=== PATIENT | male | born 1955 ===

== ENCOUNTER 2017-05-03 20:40 | Inpatient (IN) | payer MEDICARE, MEDICAID ==
[2017-05-03] MEDS ORDERED: Iohexol 240 (50 ml) PO STA (21:07)
[2017-05-03] MEDS ORDERED: Sodium Chloride 0.9% 1,000 ML IV ONE (21:07)
[2017-05-03 21:19] LABS: BASO % 0.2 % (0.0-2.0); EOS % 0.1 % (0.0-4.0); LYMPH % 10.2 % (20.0-40.0); MEAN CELL VOLUME 87.8 fL (80.0-94.0); MEAN CORPUSCULAR HEMOGLOBIN 29.9 pg (27.0-31.0); MEAN CORPUSCULAR HGB CONC 34.1 g/dL (33.0-37.0); MEAN PLATELET VOLUME 7.8 fL (7.2-11.7); MONO # 0.9 K/uL (0.0-0.8); MONO % 4.9 % (0.0-10.0); RED CELL DISTRIBUTION WIDTH 12.9 % (11.5-14.5); WHITE BLOOD COUNT 19.3 K/uL (4.8-10.8)
[2017-05-03] MEDS ORDERED: Iohexol 240 (50 ml) ONE (21:19)
[2017-05-03] MEDS ORDERED: Sodium Chloride 0.9% 1,000 ML ONE (21:20)
[2017-05-03] MEDS ORDERED: Piperacillin/Tazobact 3.375 gm 100 ML IV STA (21:24)
[2017-05-03 21:27] LABS: CHLORIDE 99 mmol/L (98-107)
[2017-05-03 21:28] LABS: POTASSIUM 4.1 mmol/L (3.6-5.2); SODIUM 138 mmol/L (132-148)
[2017-05-03] MEDS ORDERED: Piperacillin/Tazobact 3.375 gm 100 ML IVPB ONE (21:29)
[2017-05-03 21:30] LABS: ALB/GLOB RATIO 1.2 (1.0-2.1); ALKALINE PHOSPHATASE 77 U/L (38-126); ALT/SGPT 43 U/L (21-72); AST/SGOT 27 U/L (17-59); BILIRUBIN,TOTAL 0.8 mg/dL (0.2-1.3); BLOOD UREA NITROGEN 11 mg/dL (9-20); CARBON DIOXIDE 22 mmol/L (22-30); GFR AFRICAN-AMERICAN > 60; TOTAL PROTEIN 7.9 g/dL (6.3-8.3)
[2017-05-03 21:31] LABS: GLUCOSE,RANDOM 111 mg/dL (75-110)
--- NOTE | 2017-05-03 21:41 | C.PDOC ---
History Of Present Illness 61 year old male presents to the ED with complaints of generalized abdominal pain that radiates to RLQ beginning earlier today. Patient states he awoke this morning with no symptoms and following breakfast he began to have generalized abdominal pain and vomiting. He notes pain lingered all day and began to radiate to RLQ and become localized. Pain is exacerbated with walking, movement , and deep breaths. Patient notes vomiting has subsided and he denies fever or diarrhea. Time Seen by Provider: 05/03/17 21:00 Chief Complaint (Nursing): Abdominal Pain History Per: Patient History/Exam Limitations: no limitations Onset/Duration Of Symptoms: Hrs Current Symptoms Are (Timing): Still Present Location Of Pain/Discomfort: Diffuse (began as diffuse abdominal pain), RLQ ( radiated and became localized to RLQ) Quality Of Discomfort: "Pain" Associated Symptoms: Vomiting. denies: Fever, Chills, Diarrhea Exacerbating Factors: Movement, Walking, Deep Breaths Recent travel outside of the [place]: No Past Medical History Reviewed: Historical Data, Nursing Documentation, Vital Signs Vital Signs: Last Vital Signs Temp 98.3 F 05/03/17 20:47 Pulse 71 05/03/17 20:47 Resp 18 05/03/17 20:47 BP 187/89 H 05/03/17 20:47 Pulse Ox 100 05/03/17 23:32 Family History: States: Unknown Family Hx - Social History Hx Alcohol Use: No Hx Substance Use: No Review Of Systems Constitutional: Negative for: Fever, Chills Cardiovascular: Negative for: Chest Pain, Palpitations Respiratory: Negative for: Cough, Shortness of Breath Gastrointestinal: Positive for: Nausea, Vomiting, Abdominal Pain. Negative for : Diarrhea Genitourinary: Negative for: Dysuria Physical Exam - Physical Exam Appears: Non-toxic, No Acute Distress Skin: Warm, Dry Head: Atraumatic Eye(s): bilateral: Normal Inspection, EOMI Oral Mucosa: Moist Neck: Supple Chest: Symmetrical, No Deformity Cardiovascular: Rhythm Regular, No Murmur Respiratory: Normal Breath Sounds, No Rhonchi, No Wheezing Gastrointestinal/Abdominal: Bowel Sounds (normal bowel sounds ), Soft, Tenderness (RLQ), No Distention, Guarding (RLQ), No Rebound Neurological/Psych: Oriented x3, Normal Speech, Normal Cognition ED Course And Treatment - Laboratory Results Result Diagrams: 05/03/17 21:16 05/03/17 21:16 Lab Interpretation: Abnormal (WBC 19.3 with left shift) O2 Sat by Pulse Oximetry: 100 (room air ) - CT Scan/US CT Abdomen and Pelvis With Intravenous Contrast Other Rad Studies (CT/US): Read By Radiologist, Radiology Report Reviewed CT/US Interpretation: FINDINGS: Lower thorax: Heart size is normal. There are coronary calcifications. There is reflux of contrast into. the distal esophagus. There is minimal atelectasis at the lung bases. ABDOMEN: Liver: There small granulomas in the liver. There is fatty infiltration of the liver. Gallbladder and bile ducts: unremarkable. Pancreas: unremarkable. Spleen: unremarkable. Adrenals: unremarkable. Kidneys and ureters: unremarkable. Stomach and bowel: Stomach is partially distended. Rotation is normal. There is no obstruction. There is mild distal ileal wall thickening. Retrocecal appendix is fluid-filled and dilated. Maximal. diameter is approximately 15 mm. There are multiple fecaliths in the appendix. There is adjacent. inflammation and edema. There is a small amount of fluid in the colic gutter. Colon is incompletely. distended which limits evaluation. Appendix: See stomach and bowel. PELVIS: Bladder: unremarkable. Reproductive: Seminal vesicles and prostate are unremarkable. ABDOMEN and PELVIS: Intraperitoneal space: There is no free air or free fluid. There is inflammation and edema in the right. lower quadrant. There is a small amount of free fluid in the right colic. There is no free air. Bones/joints: There is scoliosis. There are bridging syndesmophytes and osteophytes throughout. the spine. There degenerative changes. There is partial sacroiliac joint ankylosis. Soft tissues : unremarkable. Vasculature: There are vascular calcifications. Lymph nodes: There is no pathologic adenopathy. IMPRESSION: Appendicitis. Additional findings as described above Progress Note: Abdominal pelvis CT and UA were ordered. Patient was given Iohexol, piperacillin/tazobactam IVPB, and IV fluids. Disposition - Disposition Disposition: HOSPITALIZED Disposition Time: 23:32 Condition: STABLE - Clinical Impression Clinical Impression: Appendicitis - Scribe Statement The provider has reviewed the documentation as recorded by the Scribe Cherie Alvarez All medical record entries made by the Aceibe were at my direction and personally dictated by me. I have reviewed the chart and agree that the record accurately reflects my personal performance of the history, physical exam, medical decision making, and the department course for this patient. I have also personally directed, reviewed, and agree with the discharge instructions and disposition.
[2017-05-03] MEDS ORDERED: Iodixanol 320 MG/ML 100 ML BOTTLE IV ONE (22:15)
[2017-05-03 22:35] LABS: RBC URINE 1 /hpf (0-3); URINE BILIRUBIN NEGATIVE (NEGATIVE); URINE BLOOD NEGATIVE (NEGATIVE); URINE COLOR Yellow (YELLOW); URINE GLUCOSE (UA) NORMAL (Normal); URINE KETONE 1+ mg/dL (NEGATIVE); URINE LEUKOCYTE ESTERASE NEG Leu/uL (Negative); URINE PROTEIN NEGATIVE (NEGATIVE); URINE UROBILINOGEN NORMAL mg/dL (0.2-1.0); WBC URINE < 1 /hpf (0-5)
--- NOTE | 2017-05-03 23:25 | CT ---
EXAM: CT Abdomen and Pelvis With Intravenous Contrast EXAM DATE/TIME: 05/03/2017 9:08 PM CLINICAL HISTORY: 61 years old, male; Pain; Abdominal pain; Generalized; Prior surgery; Surgery date: 6+ months; Surgery type: Bi lateral hernia repair; Additional info: Abd pain TECHNIQUE: Axial computed tomography images of the abdomen and pelvis with intravenous contrast. All CT scans at this facility use one or more dose reduction techniques, viz.: automated exposure control; ma/kV adjustment per patient size (including targeted exams where dose is matched to indication; i.e. head); or iterative reconstruction technique. Coronal and sagittal reformatted images were created and reviewed. CONTRAST: 90 mL of VISIPAQUE administered intravenously. COMPARISON: There are no prior studies for comparison. FINDINGS: Lower thorax: Heart size is normal. There are coronary calcifications. There is reflux of contrast into the distal esophagus. There is minimal atelectasis at the lung bases ABDOMEN: Liver: There small granulomas in the liver. There is fatty infiltration of the liver. Gallbladder and bile ducts: unremarkable Pancreas: unremarkable Spleen: unremarkable Adrenals: unremarkable Kidneys and ureters: unremarkable Stomach and bowel: Stomach is partially distended. Rotation is normal. There is no obstruction. There is mild distal ileal wall thickening. Retrocecal appendix is fluid-filled and dilated. Maximal diameter is approximately 15 mm. There are multiple fecaliths in the appendix. There is adjacent inflammation and edema. There is a small amount of fluid in the colic gutter. Colon is incompletely distended which limits evaluation. Appendix: See stomach and bowel PELVIS: Bladder: unremarkable Reproductive: Seminal vesicles and prostate are unremarkable. ABDOMEN and PELVIS: Intraperitoneal space: There is no free air or free fluid. There is inflammation and edema in the right lower quadrant. There is a small amount of free fluid in the right colic. There is no free air. Bones/joints: There is scoliosis. There are bridging syndesmophytes and osteophytes throughout the spine. There degenerative changes. There is partial sacroiliac joint ankylosis. Soft tissues: unremarkable Vasculature: There are vascular calcifications. Lymph nodes: There is no pathologic adenopathy. IMPRESSION: Appendicitis Additional findings as described above.
--- NOTE | 2017-05-04 01:23 | CP.PCM.HP ---
History of Present Illness - History of Present Illness History of Present Illness: Surgery: Dr. Barber CC: Abd pain HPI: 61M w. no PMH presents to ED w. abd pain starting at 10AM. Pain was christine- umbilical and migrated to RLQ. Pain is sharp and constant. No alleviating or aggravating factors. + N/V. No Diarrhea. +F/C. No change in appetite. Pt denies ACUNA/blurred vision, no CP/palpitations, +SOB when pain is most severe, no cough, no hematuria/dysuria, no weakness/fatigue. CT done in ED had findings consistent w. appendicitis. PMH: none PSH: Open and laparoscopic B/L inguinal hernia repair Meds: none NKDA SOcial: No ETOH/tobacco/drugs Fhx: non-contributory Present on Admission - Present on Admission Any Indicators Present on Admission: No Review of Systems - Review of Systems All systems: reviewed and no additional remarkable complaints except (HPI) Past Patient History - Past Social History Smoking Status: Former Smoker - PSYCHIATRIC Hx Substance Use: No - SURGICAL HISTORY Hx Herniorrhaphy: Yes Meds Allergies/Adverse Reactions: Allergies Allergy/AdvReac Type Severity Reaction Status Date / Time No Known Allergies Allergy Verified 05/03/17 21:07 Physical Exam - Constitutional Appears: Non-toxic, No Acute Distress - Head Exam Head Exam: ATRAUMATIC, NORMOCEPHALIC - Eye Exam Eye Exam: EOMI. absent: Scleral icterus Pupil Exam: PERRL - ENT Exam ENT Exam: Mucous Membranes Moist, Normal External Ear Exam - Neck Exam Neck exam: Positive for: Full Rom - Respiratory Exam Respiratory Exam: NORMAL BREATHING PATTERN. absent: Accessory Muscle Use, Respiratory Distress - Cardiovascular Exam Cardiovascular Exam: REGULAR RHYTHM - GI/Abdominal Exam GI & Abdominal Exam: Soft, Tenderness (RLQ). absent: Distended, Firm, Guarding , Rebound, Rigid - Extremities Exam Extremities exam: Negative for: calf tenderness, pedal edema - Back Exam Back exam: absent: CVA tenderness (L), CVA tenderness (R) - Neurological Exam Neurological exam: Alert, Oriented x3 - Psychiatric Exam Psychiatric exam: Normal Affect, Normal Mood - Skin Skin Exam: Dry, Normal Color, Warm Results - Vital Signs Recent Vital Signs: Last Vital Signs Temp 99.2 F 05/04/17 01:07 Pulse 89 05/04/17 01:07 Resp 20 05/04/17 01:07 BP 178/91 H 05/04/17 01:07 Pulse Ox 95 05/04/17 01:07 - Labs Result Diagrams: 05/03/17 21:16 05/03/17 21:16 - Imaging and Cardiology CT scan - abdomen Status: Image reviewed by me, Report reviewed by me Assessment & Plan - Assessment and Plan (Free Text) Assessment: 61M w. appendicitis -OR 8AM, consent in chart, risks/benefits d/w pt -NPO -zosyn -zofran -dilaudid -IVF -SCDs -d/w attending Zemaitis PGY3 Decision To Admit - Pt Status Changed To: Hospital Disposition Of: Inpatient - Admit Certification Admit to Inpatient:: After my assessment, the patient will require hospitalization for at least two midnights. This is because of the severity of symptoms shown, intensity of services needed, and/or the medical risk in this patient being treated as an outpatient. - InPatient: Physician Admission Certification:: appendicitis - . Bed Request Type: Regular
[2017-05-04] MEDS: Piperacillin/Tazobact 3.375 GM in Sodium Chloride 100 ML IVPB SCH ×4 (02:15→18:57)
[2017-05-04] MEDS: Sodium Chloride 0.9% 1,000 ML IV SCH ×4 (02:16→22:02)
[2017-05-04] MEDS ORDERED: Bupivacaine-Epi 0.25%-1:200,000 PF Inj ONE (07:25)
[2017-05-04] MEDS ORDERED: HYDROmorphone 0.5 mg/0.5 ml ISec IVP PRN (07:54)
[2017-05-04] MEDS ORDERED: Propofol 10 mg/ml Inj (20 ML) ONE (07:57)
[2017-05-04] MEDS ORDERED: Midazolam 2 MG/2 ML VIAL ONE (07:57)
[2017-05-04] MEDS ORDERED: Succinylcholine Chloride 20 mg/ml Syr (5 ml) IV ONE (08:00)
[2017-05-04] MEDS ORDERED: Rocuronium 10 mg/ml (5 ml) ONE (08:00)
[2017-05-04] MEDS ORDERED: Lactated Ringer's 1,000 ML IV SCH (08:15)
[2017-05-04] MEDS ORDERED: Neostigmine Methylsulfate 3mg/3ml Syringe IV ONE (09:29)
[2017-05-04] MEDS ORDERED: Lactated Ringer's 1,000 ML IV ONE (09:50)
--- NOTE | 2017-05-04 09:53 | PCM.SURG1 ---
Surgeon's Initial Post Op Note - Surgeon's Notes Surgeon: Sunil Instructor Warper: SHAHID CrooksY2, Fred, MS4 Pre-Operative Diagnosis: Appendicitis Operative Findings: inflamed appendix, perforated Post-Operative Diagnosis: perforated appendicitis Operation Performed: laparoscopic turned open appendectomy Specimen/Specimens Removed: appendix Estimated Blood Loss: EBL {In ML}: 40 Date of Surgery/Procedure: 05/04/17 Time of Surgery/Procedure: 08:40
[2017-05-04] MEDS: HYDROmorphone 1 mg/ml ISec IVP PRN ×2 (14:19→21:58)
[2017-05-05] MEDS: Piperacillin/Tazobact 3.375 GM in Sodium Chloride 100 ML IVPB SCH ×4 (00:33→18:52)
[2017-05-05] MEDS: HYDROmorphone 1 mg/ml ISec IVP PRN ×3 (01:46→11:22)
[2017-05-05 06:23] LABS: BASO % 0.2 % (0.0-2.0); HEMATOCRIT 41.5 % (35.0-51.0); LYMPH # 1.6 K/uL (1.0-4.3); LYMPH % 12.7 % (20.0-40.0); MEAN CORPUSCULAR HEMOGLOBIN 29.3 pg (27.0-31.0); MEAN CORPUSCULAR HGB CONC 32.9 g/dL (33.0-37.0); MEAN PLATELET VOLUME 8.3 fL (7.2-11.7); MONO # 0.9 K/uL (0.0-0.8); MONO % 7.3 % (0.0-10.0); RED CELL DISTRIBUTION WIDTH 13.2 % (11.5-14.5); WHITE BLOOD COUNT 12.6 K/uL (4.8-10.8)
[2017-05-05 06:45] LABS: ALB/GLOB RATIO 1.1 (1.0-2.1); ALKALINE PHOSPHATASE 51 U/L (38-126); ALT/SGPT 33 U/L (21-72); AST/SGOT 30 U/L (17-59); BILIRUBIN,TOTAL 1.5 mg/dL (0.2-1.3); BLOOD UREA NITROGEN 14 mg/dL (9-20); CALCIUM 8.4 mg/dl (8.6-10.4); CARBON DIOXIDE 24 mmol/L (22-30); CHLORIDE 102 mmol/L (98-107); GFR AFRICAN-AMERICAN > 60; GLUCOSE,RANDOM 126 mg/dL (75-110); POTASSIUM 4.2 mmol/L (3.6-5.2); SODIUM 137 mmol/L (132-148); TOTAL PROTEIN 6.4 g/dL (6.3-8.3)
[2017-05-05] MEDS ORDERED: Benzocaine/Menthol (Cepacol) Lozenge MT ONE (06:45)
[2017-05-05] MEDS: Sodium Chloride 0.9% 1,000 ML IV SCH ×3 (06:52→18:51)
--- NOTE | 2017-05-05 06:53 | OP ---
PROCEDURE DATE: 05/04/2017 PREOPERATIVE DIAGNOSIS: Acute appendicitis with possible perforation. POSTOPERATIVE DIAGNOSIS: Acute appendicitis with possible perforation. PROCEDURE PERFORMED: Laparoscopy, attempted laparoscopic appendectomy, then exploratory laparotomy and open appendectomy. FINDINGS: The appendix was markedly inflamed. There is purulent fluid located in the right lower quadrant of the abdomen and in the pelvis. The appendix was markedly swollen, especially the mesoappendix, but the base was not identifiable. PROCEDURE: Under general anesthesia, the patient was prepared and draped in the usual sterile fashion. CO2 was insufflated through a Veress needle and inserted in the umbilical area. A 12 mm trocar was inserted in the umbilicus, 5 mm in the suprapubic area and a 5 mm trocar in the left lower quadrant. The patient was placed in a Trendelenburg position, turned over towards the left side. Visibility was difficult because of tremendously distended bowel. However, the appendix was identified but very, very friable; therefore, the attempted grasping of the appendix made it like come out in small pieces without identifying the rest of the appendix. Because of this condition and because of the poor visibility, we could not identify the base of the appendix. Therefore, a decision was made to do an open appendectomy. A right lower paramedian incision was made, extended down to subcutaneous tissue to the fascial level. The muscle was along the course of its fibers and peritoneal cavity was entered. The above findings were demonstrated. The cecum was then identified. A blunt dissection was carried out to mobilize the cecum and the appendix and then the base of the appendix was identified by transecting through the mesentery first. The patient was then ligated with a single tie of 0 Vicryl. The appendix was then removed. Check for bleeders proved to be negative for any bleeding; therefore, the area was irrigated with copious amount of saline solution, irrigating fluid was suctioned out. Abdomen was then closed in layers utilizing a continuous suture of 0 Vicryl for the peritoneum, interrupted [id number] sutures of 0 Vicryl for the fascia and the skin was closed with multiple skin marly. A similar procedure was employed on the smaller trocar site incisions. Estimated blood loss for the procedure probably approximately about 50 mL. The patient tolerated the procedure well and left the operating room in good condition. Cedric Barber MD [facility] # [id number]
--- NOTE | 2017-05-05 15:32 | CP.PCM.PN ---
Subjective - Date & Time of Evaluation Date of Evaluation: 05/05/17 Time of Evaluation: 06:35 - Subjective Subjective: Patient seen and examined. Complaints of pain along surgical incision sites. Dressings are c/d/i. Tolerating diet. Objective - Vital Signs/Intake and Output Vital Signs (last 24 hours): Temp Pulse Resp BP Pulse Ox 99.4 F 101 H 18 131/73 97 05/05/17 07:20 05/05/17 07:20 05/05/17 07:20 05/05/17 07:20 05/05/17 07:20 Intake and Output: 05/05/17 05/05/17 06:59 18:59 Intake Total 1020 Output Total 1000 Balance 20 - Medications Medications: Current Medications Acetaminophen (Tylenol 325mg Tab) 650 mg PO Q6 PRN PRN Reason: Fever >100.4 F Hydromorphone HCl (Dilaudid) 1 mg IVP Q4H PRN PRN Reason: Pain, moderate (4-7) Last Admin: 05/05/17 11:22 Dose: 1 mg Piperacillin Sod/Tazobactam (Sod 3.375 gm/ Sodium Chloride) 100 mls @ 200 mls/ hr IVPB Q6H [facility] Last Admin: 05/05/17 14:05 Dose: 200 mls/hr Sodium Chloride (Sodium Chloride 0.9%) 1,000 mls @ 120 mls/hr IV .Q8H20M [facility] Last Admin: 05/05/17 11:26 Dose: 120 mls/hr Lactated Ringer's (Lactated Ringer's) 1,000 mls @ 100 mls/hr IV .Q10H [facility] Last Admin: 05/05/17 06:07 Dose: Not Given Ondansetron HCl (Zofran Inj) 4 mg IVP Q4 PRN PRN Reason: Nausea/Vomiting - Labs Labs: 05/05/17 06:20 05/05/17 06:20 PT 11.7 SECONDS (9.7-12.2) 05/04/17 01:44 INR 1.0 05/04/17 01:44 APTT 31 SECONDS (21-34) 05/04/17 01:44 - Constitutional Appears: No Acute Distress - Head Exam Head Exam: NORMOCEPHALIC - Eye Exam Eye Exam: Normal appearance Pupil Exam: NORMAL ACCOMODATION - ENT Exam ENT Exam: Mucous Membranes Moist - Respiratory Exam Respiratory Exam: NORMAL BREATHING PATTERN - Cardiovascular Exam Cardiovascular Exam: +S1, +S2 - GI/Abdominal Exam GI & Abdominal Exam: Distended, Soft Additional comments: mild distended - Neurological Exam Neurological Exam: Alert, Awake, Oriented x3 - Psychiatric Exam Psychiatric exam: Normal Mood - Skin Skin Exam: Dry, Warm Assessment and Plan - Assessment and Plan (Free Text) Assessment: 61M s/p laparoscopic appendectomy converted to open appendectomy POD1 -Adv to regular diet -C/w Abx -Analgesic/Anti-emetics prn -Encourage incentive spirometer -Encourage ambulation -Further recs per Dr. Sunil Park PGY-2
[2017-05-06] MEDS: Piperacillin/Tazobact 3.375 GM in Sodium Chloride 100 ML IVPB SCH ×3 (01:54→18:33)
[2017-05-06] MEDS: Sodium Chloride 0.9% 1,000 ML IV SCH ×2 (02:58→20:10)
[2017-05-06] MEDS: HYDROmorphone 1 mg/ml ISec IVP PRN ×3 (07:55→22:52)
--- NOTE | 2017-05-06 08:47 | CP.PCM.PN ---
Subjective - Date & Time of Evaluation Date of Evaluation: 05/06/17 Time of Evaluation: 07:15 - Subjective Subjective: SURGERY NOTE FOR DR. DSOUZA 61M seen and examined at bedside. Patient states his abdomen is still distended , denies flatus/bowel movement. Admits eructation. Objective - Vital Signs/Intake and Output Vital Signs (last 24 hours): Temp Pulse Resp BP Pulse Ox 98.4 F 100 H 18 182/95 H 95 05/06/17 08:12 05/06/17 08:12 05/06/17 08:12 05/06/17 08:12 05/06/17 08:12 Intake and Output: 05/06/17 05/06/17 06:59 18:59 Intake Total 1060 Output Total 300 Balance 760 - Medications Medications: Current Medications Acetaminophen (Tylenol 325mg Tab) 650 mg PO Q6 PRN PRN Reason: Fever >100.4 F Hydromorphone HCl (Dilaudid) 1 mg IVP Q4H PRN PRN Reason: Pain, moderate (4-7) Last Admin: 05/06/17 07:55 Dose: 1 mg Piperacillin Sod/Tazobactam (Sod 3.375 gm/ Sodium Chloride) 100 mls @ 200 mls/ hr IVPB Q6H [facility] Last Admin: 05/06/17 07:54 Dose: 200 mls/hr Sodium Chloride (Sodium Chloride 0.9%) 1,000 mls @ 120 mls/hr IV .Q8H20M [facility] Last Admin: 05/06/17 02:58 Dose: 120 mls/hr Lactated Ringer's (Lactated Ringer's) 1,000 mls @ 100 mls/hr IV .Q10H [facility] Last Admin: 05/05/17 06:07 Dose: Not Given Metoclopramide HCl (Reglan) 10 mg IVP Q6H [facility] Last Admin: 05/06/17 05:49 Dose: 10 mg - Labs Labs: 05/05/17 06:20 05/05/17 06:20 PT 11.7 SECONDS (9.7-12.2) 05/04/17 01:44 INR 1.0 05/04/17 01:44 APTT 31 SECONDS (21-34) 05/04/17 01:44 - Constitutional Appears: Non-toxic, No Acute Distress - Respiratory Exam Respiratory Exam: Clear to Ausculation Bilateral, NORMAL BREATHING PATTERN - Cardiovascular Exam Cardiovascular Exam: REGULAR RHYTHM, +S1, +S2 - GI/Abdominal Exam GI & Abdominal Exam: Distended, Soft, Tenderness. absent: Firm, Guarding, Rigid , Rebound - Neurological Exam Neurological Exam: Alert, Awake - Skin Skin Exam: Dry, Intact, Normal Color, Warm Assessment and Plan - Assessment and Plan (Free Text) Assessment: 61M s/p laparoscopic turned open appendectomy POD2 Plan: - Patient is NPO - Patient started on Reglan - await bowel function - encourage ambulation/Incentive spirometer Further recs discuss with Dr. Sunil Crooks, PGY2
[2017-05-07] MEDS: Piperacillin/Tazobact 3.375 GM in Sodium Chloride 100 ML IVPB SCH ×4 (00:46→18:37)
[2017-05-07] MEDS ORDERED: Sodium Chloride 0.9% 1,000 ML IV SCH ×2 (01:30→05:00)
[2017-05-07] MEDS: HYDROmorphone 1 mg/ml ISec IVP PRN (05:20)
[2017-05-07 08:03] LABS: HEMATOCRIT 34.5 % (35.0-51.0); MEAN CORPUSCULAR HEMOGLOBIN 29.9 pg (27.0-31.0); MEAN PLATELET VOLUME 8.5 fL (7.2-11.7); RED CELL DISTRIBUTION WIDTH 13.1 % (11.5-14.5); WHITE BLOOD COUNT 13.4 K/uL (4.8-10.8)
[2017-05-07 08:33] LABS: CHLORIDE 104 mmol/L (98-107)
[2017-05-07 08:34] LABS: POTASSIUM 3.4 mmol/L (3.6-5.2); SODIUM 141 mmol/L (132-148)
[2017-05-07 08:36] LABS: GFR AFRICAN-AMERICAN > 60
[2017-05-07 08:37] LABS: BLOOD UREA NITROGEN 15 mg/dL (9-20); CALCIUM 8.2 mg/dl (8.6-10.4); CARBON DIOXIDE 23 mmol/L (22-30); GLUCOSE,RANDOM 117 mg/dL (75-110)
--- NOTE | 2017-05-07 09:14 | CP.PCM.PN ---
Subjective - Date & Time of Evaluation Date of Evaluation: 05/07/17 Time of Evaluation: 07:00 - Subjective Subjective: SURGERY NOTE FOR DR. DSOUZA 61M seen and examined at bedside. Patient states pain is much more improved. He had multiple bowel movements overnight, Tolerating diet. Objective - Vital Signs/Intake and Output Vital Signs (last 24 hours): Temp Pulse Resp BP Pulse Ox 99.1 F 98 H 20 171/85 H 96 05/07/17 07:00 05/07/17 07:00 05/07/17 07:00 05/07/17 07:00 05/07/17 07:00 Intake and Output: 05/07/17 05/07/17 06:59 18:59 Intake Total 1710 Balance 1710 - Medications Medications: Current Medications Acetaminophen (Tylenol 325mg Tab) 650 mg PO Q6 PRN PRN Reason: Fever >100.4 F Piperacillin Sod/Tazobactam (Sod 3.375 gm/ Sodium Chloride) 100 mls @ 200 mls/ hr IVPB Q6H [facility] Last Admin: 05/07/17 06:36 Dose: 200 mls/hr Metoclopramide HCl (Reglan) 10 mg IVP Q6H [facility] Last Admin: 05/07/17 05:20 Dose: 10 mg Oxycodone/Acetaminophen (Percocet 5/325 Mg Tab) 1 tab PO Q4H PRN PRN Reason: Pain, moderate (4-7) Stop: 05/10/17 08:55 - Labs Labs: 05/07/17 07:50 05/07/17 07:50 PT 11.7 SECONDS (9.7-12.2) 05/04/17 01:44 INR 1.0 05/04/17 01:44 APTT 31 SECONDS (21-34) 05/04/17 01:44 - Constitutional Appears: Non-toxic, No Acute Distress - Respiratory Exam Respiratory Exam: Clear to Ausculation Bilateral, NORMAL BREATHING PATTERN - Cardiovascular Exam Cardiovascular Exam: REGULAR RHYTHM, +S1, +S2 - GI/Abdominal Exam GI & Abdominal Exam: Soft. absent: Distended, Firm, Guarding, Rigid, Tenderness , Rebound Additional comments: dressings CDI - Neurological Exam Neurological Exam: Alert, Awake Assessment and Plan - Assessment and Plan (Free Text) Assessment: 61M s/p lap appendectomy turned open POD3 Plan: - Pain control - IV Abx - ADAT - Monitor wounds Further recs discuss with Dr. Sunil Crooks, PGY2
[2017-05-07] MEDS: Oxycodone/Acetaminophen 5/325 mg Tab PO PRN ×2 (11:13→22:11)
[2017-05-08] MEDS: Piperacillin/Tazobact 3.375 GM in Sodium Chloride 100 ML IVPB SCH ×4 (00:35→20:30)
[2017-05-08] MEDS: Oxycodone/Acetaminophen 5/325 mg Tab PO PRN ×5 (02:19→22:09)
[2017-05-08 07:05] LABS: HEMATOCRIT 36.3 % (35.0-51.0); MEAN CELL VOLUME 88.5 fL (80.0-94.0); MEAN CORPUSCULAR HEMOGLOBIN 29.4 pg (27.0-31.0); MEAN CORPUSCULAR HGB CONC 33.2 g/dL (33.0-37.0); MEAN PLATELET VOLUME 8.2 fL (7.2-11.7); RED CELL DISTRIBUTION WIDTH 13.2 % (11.5-14.5); WHITE BLOOD COUNT 12.5 K/uL (4.8-10.8)
[2017-05-08 08:04] VITALS: RESP 20
--- NOTE | 2017-05-08 08:47 | CP.PCM.PN ---
Subjective - Date & Time of Evaluation Date of Evaluation: 05/08/17 Time of Evaluation: 08:43 - Subjective Subjective: General surgery - Dr. Barber Pt S&EElia MICHAUD. Pt complains of mild pain from the incision but controlled with meds. He is tolerating full liquid diet but states that he does not want to try solid food yet. He had a few loose stools yest. No F/C, SOb/Cp. Objective - Vital Signs/Intake and Output Vital Signs (last 24 hours): Temp Pulse Resp BP Pulse Ox 98.5 F 84 20 168/78 H 96 05/08/17 08:02 05/08/17 08:02 05/08/17 08:02 05/08/17 08:02 05/08/17 08:02 - Medications Medications: Current Medications Acetaminophen (Tylenol 325mg Tab) 650 mg PO Q6 PRN PRN Reason: Fever >100.4 F Piperacillin Sod/Tazobactam (Sod 3.375 gm/ Sodium Chloride) 100 mls @ 200 mls/ hr IVPB Q6H [facility] Last Admin: 05/08/17 06:30 Dose: 200 mls/hr Oxycodone/Acetaminophen (Percocet 5/325 Mg Tab) 1 tab PO Q4H PRN PRN Reason: Pain, moderate (4-7) Stop: 05/10/17 08:55 Last Admin: 05/08/17 06:16 Dose: 1 tab - Labs Labs: 05/08/17 07:01 05/07/17 07:50 PT 11.7 SECONDS (9.7-12.2) 05/04/17 01:44 INR 1.0 05/04/17 01:44 APTT 31 SECONDS (21-34) 05/04/17 01:44 - Constitutional Appears: No Acute Distress - Head Exam Head Exam: ATRAUMATIC, NORMAL INSPECTION, NORMOCEPHALIC - Respiratory Exam Respiratory Exam: NORMAL BREATHING PATTERN. absent: Respiratory Distress - GI/Abdominal Exam GI & Abdominal Exam: Distended (mild), Soft, Tenderness (appropriately). absent : Guarding, Rebound Additional comments: midline incision w/ marly and serous drainage, mild erythema and tenderness around wound, dressing changed - Neurological Exam Neurological Exam: Alert, Oriented x3 - Psychiatric Exam Psychiatric exam: Normal Affect, Normal Mood - Skin Skin Exam: Dry, Intact Assessment and Plan - Assessment and Plan (Free Text) Assessment: 61M s/p lap appendectomy conv. to Open POD4 Plan: - Cont. Pain control, IV Abx - Poss. small superficial wound infection v. seroma - Dressing change daily by surgical team and can be changed PRN by nursing through the day if it becomes saturated - ADAT -Encourage OOB and Ambulation Will dw Dr Sunil Hi, PGY3
[2017-05-08 09:40] LABS: CHLORIDE 105 mmol/L (98-107); SODIUM 141 mmol/L (132-148)
[2017-05-08 09:43] LABS: BLOOD UREA NITROGEN 13 mg/dL (9-20); CARBON DIOXIDE 27 mmol/L (22-30); GFR AFRICAN-AMERICAN > 60
[2017-05-08 09:44] LABS: CALCIUM 8.3 mg/dl (8.6-10.4); GLUCOSE,RANDOM 119 mg/dL (75-110)
[2017-05-08] MEDS ORDERED: Potassium Chloride 20 mEq ER Tab PO ONE (12:00)
[2017-05-09] MEDS: Piperacillin/Tazobact 3.375 GM in Sodium Chloride 100 ML IVPB SCH ×4 (00:34→20:50)
[2017-05-09] MEDS: Oxycodone/Acetaminophen 5/325 mg Tab PO PRN ×3 (03:17→17:31)
[2017-05-09 11:46] LABS: BASO # 0.1 K/uL (0.0-0.2); EOS # 0.2 K/uL (0.0-0.7); MEAN PLATELET VOLUME 8.2 fL (7.2-11.7); MONO # 1.3 K/uL (0.0-0.8)
[2017-05-09 11:51] LABS: BASO % 0.5 % (0.0-2.0); EOS % 1.6 % (0.0-4.0); HEMATOCRIT 36.4 % (35.0-51.0); LYMPH # 1.7 K/uL (1.0-4.3); LYMPH % 14.4 % (20.0-40.0); MEAN CORPUSCULAR HEMOGLOBIN 29.7 pg (27.0-31.0); MEAN CORPUSCULAR HGB CONC 33.8 g/dL (33.0-37.0); MONO % 11.2 % (0.0-10.0); RED CELL DISTRIBUTION WIDTH 13.5 % (11.5-14.5); WHITE BLOOD COUNT 12.1 K/uL (4.8-10.8)
[2017-05-09 11:52] LABS: CHLORIDE 101 mmol/L (98-107); POTASSIUM 3.3 mmol/L (3.6-5.2); SODIUM 140 mmol/L (132-148)
[2017-05-09 11:54] LABS: GFR AFRICAN-AMERICAN > 60
[2017-05-09 11:55] LABS: BLOOD UREA NITROGEN 13 mg/dL (9-20); CALCIUM 8.3 mg/dl (8.6-10.4); CARBON DIOXIDE 30 mmol/L (22-30); GLUCOSE,RANDOM 121 mg/dL (75-110)
[2017-05-09] MEDS ORDERED: Potassium Chloride 20 mEq ER Tab PO ONE (12:11)
--- NOTE | 2017-05-09 15:07 | CP.PCM.DIS ---
Provider - Provider Date of Admission: 05/04/17 00:24 Attending physician: Cedric Barber MD Time Spent in preparation of Discharge (in minutes): 45 Hospital Course - Lab Results Lab Results: Most Recent Lab Values WBC 12.1 K/uL (4.8-10.8) H 05/09/17 11:36 RBC 4.14 Mil/uL (4.40-5.90) L 05/09/17 11:36 Hgb 12.3 g/dL (12.0-18.0) 05/09/17 11:36 Hct 36.4 % (35.0-51.0) 05/09/17 11:36 MCV 88.0 fL (80.0-94.0) 05/09/17 11:36 MCH 29.7 pg (27.0-31.0) 05/09/17 11:36 MCHC 33.8 g/dL (33.0-37.0) 05/09/17 11:36 RDW 13.5 % (11.5-14.5) 05/09/17 11:36 Plt Count 405 K/uL (130-400) H D 05/09/17 11:36 MPV 8.2 fL (7.2-11.7) 05/09/17 11:36 Neut % (Auto) 72.3 % (50.0-75.0) 05/09/17 11:36 Lymph % (Auto) 14.4 % (20.0-40.0) L 05/09/17 11:36 [place] % (Auto) 11.2 % (0.0-10.0) H 05/09/17 11:36 Eos % (Auto) 1.6 % (0.0-4.0) 05/09/17 11:36 Baso % (Auto) 0.5 % (0.0-2.0) 05/09/17 11:36 Neut # 8.7 K/uL (1.8-7.0) H 05/09/17 11:36 Lymph # 1.7 K/uL (1.0-4.3) 05/09/17 11:36 [place] # 1.3 K/uL (0.0-0.8) H 05/09/17 11:36 Eos # 0.2 K/uL (0.0-0.7) 05/09/17 11:36 Baso # 0.1 K/uL (0.0-0.2) 05/09/17 11:36 PT 11.7 SECONDS (9.7-12.2) 05/04/17 01:44 INR 1.0 05/04/17 01:44 APTT 31 SECONDS (21-34) 05/04/17 01:44 Sodium 140 mmol/L (132-148) 05/09/17 11:36 Potassium 3.3 mmol/L (3.6-5.2) L 05/09/17 11:36 Chloride 101 mmol/L (98-107) 05/09/17 11:36 Carbon Dioxide 30 mmol/L (22-30) 05/09/17 11:36 Anion Gap 12 (10-20) 05/09/17 11:36 BUN 13 mg/dL (9-20) 05/09/17 11:36 Creatinine 0.7 MG/DL (0.8-1.5) L 05/09/17 11:36 Est GFR ( Amer) > 60 05/09/17 11:36 Est GFR (Non-Af Amer) > 60 05/09/17 11:36 Random Glucose 121 mg/dL (75-110) H 05/09/17 11:36 Calcium 8.3 mg/dl (8.6-10.4) L 05/09/17 11:36 Total Bilirubin 1.5 mg/dL (0.2-1.3) H 05/05/17 06:20 AST 30 U/L (17-59) 05/05/17 06:20 ALT 33 U/L (21-72) 05/05/17 06:20 Alkaline Phosphatase 51 U/L (38-126) 05/05/17 06:20 Total Protein 6.4 g/dL (6.3-8.3) 05/05/17 06:20 Albumin 3.4 g/dL (3.5-5.0) L D 05/05/17 06:20 Globulin 3.0 gm/dL (2.2-3.9) 05/05/17 06:20 Albumin/Globulin Ratio 1.1 (1.0-2.1) 05/05/17 06:20 Lipase 132 U/L (23-300) 05/03/17 21:16 Urine Color Yellow (YELLOW) 05/03/17 21:07 Urine Clarity Clear (Clear) 05/03/17 21:07 Urine pH 6.0 (5.0-8.0) 05/03/17 21:07 Ur Specific [place] 1.013 (1.003-1.030) 05/03/17 21:07 Urine Protein Negative mg/dL (NEGATIVE) 05/03/17 21:07 Urine Glucose (UA) Normal mg/dL (Normal) 05/03/17 21:07 Urine Ketones 1+ mg/dL (NEGATIVE) H 05/03/17 21:07 Urine Blood Negative (NEGATIVE) 05/03/17 21:07 Urine Nitrate Negative (NEGATIVE) 05/03/17 21:07 Urine Bilirubin Negative (NEGATIVE) 05/03/17 21:07 Urine Urobilinogen Normal mg/dL (0.2-1.0) 05/03/17 21:07 Ur Leukocyte Esterase Neg [place]/uL (Negative) 05/03/17 21:07 Urine WBC (Auto) < 1 /hpf (0-5) 05/03/17 21:07 Urine RBC (Auto) 1 /hpf (0-3) 05/03/17 21:07 - Hospital Course Hospital Course: 61M w. no PMH presents to ED w. abd pain starting at 10AM. Pain was christine- umbilical and migrated to RLQ. Pain is sharp and constant. No alleviating or aggravating factors. + N/V. No Diarrhea. +F/C. No change in appetite. Pt denies ACUNA/blurred vision, no CP/palpitations, +SOB when pain is most severe, no cough, no hematuria/dysuria, no weakness/fatigue. CT done in ED had findings consistent w. appendicitis. Pt underwent appendectomy. Pt tolerated it. While at the hospital, pt tolerated diet. Pain controlled. AMbulated. Void. + Bm. Cleared to go home. Discharge Exam - Head Exam Head Exam: ATRAUMATIC, NORMAL INSPECTION, NORMOCEPHALIC Discharge Plan - Discharge Medications Prescriptions: Ciprofloxacin [Cipro] 250 mg PO BID #14 tab metroNIDAZOLE [Flagyl] 250 mg PO BID #14 tab oxyCODONE/Acetaminophen [Percocet 5/325 mg Tab] 1 ea PO Q6 PRN #20 tab PRN Reason: Pain, Moderate (4-7) - Follow Up Plan Condition: GOOD Disposition: HOME/ ROUTINE Instructions: Open Appendectomy (DC) Additional Instructions: Follow up with Dr. Barber in 1-2 weeks to take marly off Take Percocet for pain as needed. Don't take more than 4 a day. Take Colace for constipation while taking percocet Take antibiotic twice a day with meal Referrals: Cedric Barber MD [Staff Provider] -
[2017-05-09 16:25] VITALS: BP 159/81; PULSE 87; TEMP 98.7; O2SAT 96
[2017-05-10] MEDS ORDERED: Potassium Chloride 20 mEq ER Tab PO ONE (12:07)
== END 2017-05-09 20:55 | disposition home or self-care (01) | DRG 340 ==
LOC: C.ER 20:40 → C.6T 05-04 00:24 → C.9E 05-04 00:24
PROVIDERS: ADMIT Surgery; ATTEND Surgery
PROC: 0DJD4ZZ Inspection of Lower Intestinal Tract, Percutaneous Endoscopic Approach (ICD-10-PCS; 2017-05-04)
PROC: 0DTJ0ZZ Resection of Appendix, Open Approach (ICD-10-PCS; principal; 2017-05-04 08:00)
DX: K35.2 Acute appendicitis with generalized peritonitis (principal); Z87.891 Personal history of nicotine dependence